=== PATIENT | female | born 1985 | race African-American/Black ===

== ENCOUNTER 2019-04-18 10:25 | Day surgery (SDC) | payer MEDICAID ==
[~2019-04-18] VITALS: Ht 160 cm; Wt 60.8 kg
[2019-04-18 11:18] LABS: HEMOGLOBIN 14.1 g/dL (12-16); MCH 30.2 pg (26.0-34.0); MCHC 33.6 g/dL (31.0-37.0); MCV 89.9 fL (80.0-100.0); RBC 4.67 10x6/uL (4.00-5.40); RDW 13.8 % (11.5-14.5); WBC 6.5 10x3/uL (4.8-10.8)
[2019-04-18 11:39] VITALS: BP 116/58; Ht 160 cm; Wt 60.8 kg
--- NOTE | 2019-04-21 15:35 | OP ---
PATIENT NAME: JOHNNY DE LOS SANTOS MEDICAL RECORD: [id number] :83 LOCATION:D.OPS ADMISSION DATE: SURGEON: SHAYY BRUNNER DO DATE OF OPERATION: 04/18/2019 PREOPERATIVE DIAGNOSIS: Retained intrauterine device. POSTOPERATIVE DIAGNOSIS: Retained intrauterine device. PRIMARY SURGEON: Shayy Brunner DO ANESTHESIA: General LMA. PROCEDURE: Operative hysteroscopy, IUD removal. FINDINGS: Normal appearing external genitalia, normal appearing vaginal vault. Normal appearing cervix. Uterus sounded to 8 cm. Normal appearing uterine cavity, normal bilateral fallopian tube ostia. SPECIMENS: IUD. ESTIMATED BLOOD LOSS: 30 cc. IV FLUIDS: 500 cc. URINE OUTPUT: 30 cc. COMPLICATIONS: None. CONDITION: Stable. PROCEDURE: The risks, benefits, alternatives and indications of the procedure were discussed with the patient. She voiced understanding of procedure and signed a consent. She was taken to the OR where general anesthesia was administered and found to be adequate. She was placed in dorsal lithotomy position. She was prepped and draped in the normal sterile fashion. A speculum was placed in the posterior aspect of the vagina and a single tooth tenaculum was used to grasp the anterior lip of the cervix. The uterus was sounded to 8 cm. Cervix was dilated to accommodate the hysteroscope. Hysteroscope was inserted into the uterus. Normal appearing bilateral fallopian tube ostia and the IUD was noted to be in place. The hysteroscopic graspers were used to grasp the strings of the IUD and the IUD was removed and sent to pathology. The hysteroscope and the IUD were removed from the uterus. The tenaculum was removed and bleeding was noted from the right tenaculum site which was attempted to be ligated with silver nitrate; however, bleeding was still noted and so a 2-0 Vicryl suture was used to ligate the bleeding site in a [id number] fashion with good hemostasis noted. All other instruments were then removed from the vagina. All needle, lap, sponge, and instrument counts were correct times 2. The patient tolerated the procedure well and she was awakened and taken to the recovery room in stable condition. TRANSINT:[id number] Voice Confirmation ID: [id number] DOCUMENT ID: [id number] OPERATIVE REPORT [id number] JOHNNY DE LOS SANTOS SHAYY BRUNNER DO at 1535 CC: [id number] DICTATION DATE: 04/18/19 1409 HR ADMINISTRATIVE ASSISTANT: 04/18/19 1856 [facility] [place] 04/18/19 [place] [id number] [place] [id number]
== END 2019-04-18 15:35 | disposition home or self-care (01) ==
LOC: D.OPS 10:25 → D.PAN 12:00 → D.OPS 12:00
PROVIDERS: Anesthesiology; ATTEND Student in an Organized Health Care Education/Training Program
DX: Z30.432 Encounter for removal of intrauterine contraceptive device (principal); T83.89XA Other specified complication of genitourinary prosthetic devices, implants and grafts, initial encounter